=== PATIENT | male | born 1965 | race Hispanic/Latino ===

== ENCOUNTER 2022-02-01 17:59 | Emergency (ER) | payer OTHER | END 2022-02-01 19:00 | disposition home or self-care (01) | LOC: BURERS 17:59 | DX: S20.213A Contusion of bilateral front wall of thorax, initial encounter (principal); S20.214A Contusion of middle front wall of thorax, initial encounter; V89.2XXA Person injured in unspecified motor-vehicle accident, traffic, initial encounter | CPT/HCPCS: 71250 ==